=== PATIENT | female | born 1945 | race Asian ===

== ENCOUNTER 2023-08-01 09:50 | Emergency (ER) | payer MEDICARE, OTHER ==
[~2023-08-01] VITALS: Ht 154.9 cm; Wt 61.0 kg
[~2023-08-01 09:50] MED LIST: ATOR20TA PO; CALC-1038 PO; CIPR250T6 PO; SENN-106 PO
[2023-08-01 10:37] VITALS: TEMP 98
[2023-08-01 10:45] LABS: BASOPHILS % (AUTO) 0.4 % (0.0-2.0); EOSINOPHILS % (AUTO) 1.2 % (1.0-6.0); HEMOGLOBIN 14.8 g/dL (12.0-16.0); LYMPHOCYTES # (AUTO) 1.1 K/uL (1.0-4.8); LYMPHOCYTES % (AUTO) 18.3 % (22.0-44.0); MEAN CORPUSCULAR HGB CONC 34.4 G/dL (31.0-37.0); MEAN CORPUSCULAR VOLUME 87 fL (80-100); MONOCYTES # (AUTO) 0.3 K/uL (0.1-1.0); MONOCYTES % (AUTO) 4.5 % (2.0-9.0); NEUTROPHILS # (AUTO) 4.5 K/uL (1.8-7.7); NEUTROPHILS % (AUTO) 75.6 % (40.0-70.0); PLATELET COUNT (AUTO) 164 K/uL (150-450); RED BLOOD CELL COUNT(AUTO) 4.93 MIL/uL (4.00-5.20); RED CELL DISTRIBUTION WIDTH 13.5 % (11.5-14.5)
[2023-08-01] MEDS: MECLIZINE HCL 25 MG TABLET PO ONE (10:55)
[2023-08-01 10:56] LABS: ANION GAP 11 mmol/L (8-16); CALCIUM, TOTAL 8.7 mg/dL (8.8-10.5); CARBON DIOXIDE 31 mmol/L (22-29); CHLORIDE 102 mmol/L (98-107); CREATININE 0.68 mg/dL (0.60-1.30); GLOMERULAR FILTR. RATE CALC > 60 mL/min (>60); GLUCOSE,RANDOM 175 mg/dL (70-110); POTASSIUM 3.4 mmol/L (3.5-5.1); SODIUM SERUM 144 mmol/L (136-145); UREA NITROGEN, BLOOD 9 mg/dL (7-18)
[2023-08-01 11:01] LABS: B-TYPE NATRIURETIC PEPTIDE 12 pg/mL (0-100); PROTHROMBIN TIME 10.9 SEC (9.4-11.6)
[2023-08-01 11:05] LABS: LACTIC ACID 1.5 mmol/L (0.4-2.0)
[2023-08-01 11:06] LABS: TROPONIN I-HIGH SENSITIVITY 4 ng/L (<51)
[2023-08-01 11:12] LABS: APPEARANCE,URINE HAZY (CLEAR); BILIRUBIN,URINE NEGATIVE (NEGATIVE); COLOR,URINE LIGHT YELLOW (YELLOW); GLUCOSE, URINE (UA) NEGATIVE (NEGATIVE); KETONES,URINE NEGATIVE (NEGATIVE); LEUKOCYTE ESTERASE ,URINE LARGE (NEGATIVE); NITRATE,URINE NEGATIVE (NEGATIVE); OCCULT BLOOD,URINE NEGATIVE (NEGATIVE); PROTEIN,URINE 30-70 mg/dL (NEGATIVE); UROBILINOGEN,URINE <=1.0 mg/dL (<=1.0)
[2023-08-01 11:22] LABS: ALANINE AMINOTRANSFERASE 25 U/L (12-78); ALBUMIN 3.9 g/dL (3.4-5.0); ALKALINE PHOSPHATASE 100 U/L (46-116); ASPARTATE AMINOTRANSFERASE 22 U/L (15-37); BILIRUBIN,TOTAL 0.7 mg/dL (0.1-1.0); CREATINE KINASE, TOTAL ONLY 78 U/L (26-192)
[2023-08-01] MEDS ORDERED: RIVA2.5T3 PO (11:29)
[2023-08-01] MEDS ORDERED: GABA-1216 PO (11:29)
[2023-08-01] MEDS ORDERED: AMLO-257 PO (11:29)
[2023-08-01 11:38] LABS: RBC,URINE 0-2 /HPF (0-2)
[2023-08-01 11:39] LABS: BACTERIA,URINE Many /HPF (None Seen); SQUAMOUS EPITHELIAL CELL,UR Many /LPF (None Seen)
[2023-08-01] MEDS ORDERED: MECL-302 PO (12:39)
[2023-08-01 12:47] VITALS: BP 136/74; PULSE 70; RESP 16
== END 2023-08-01 13:04 | disposition home or self-care (01) ==
LOC: EMS 09:50
DX: R42 Dizziness and giddiness (principal); E78.00 Pure hypercholesterolemia, unspecified; I10 Essential (primary) hypertension; Z86.73 Personal history of transient ischemic attack (TIA), and cerebral infarction without residual deficits
CPT/HCPCS: 70450; 71045; 80053; 81001; 82550; 83605; 83880; 84484; 85025; 85610; 85730; 87086; 87186; 93005; 99285; 36415-L1; 36415-TC

== ENCOUNTER 2023-08-26 15:22 | Emergency (ER) | payer MEDICARE, OTHER ==
[~2023-08-26] VITALS: Ht 154.9 cm; Wt 56.8 kg
[~2023-08-26 15:22] MED LIST changes: +AMLO-257 PO; -CIPR250T6 PO; +GABA-1216 PO; +MECL-302 PO; +RIVA2.5T3 PO
[2023-08-26] MEDS ORDERED: IBUP-1552 PO (21:18)
[2023-08-26] MEDS ORDERED: ACET-2247 PO (21:18)
[2023-08-26] MEDS: IBUPROFEN 200 MG TABLET PO ONE (21:25)
[2023-08-26] MEDS: ACETAMINOPHEN 325 MG TABLET PO ONE (21:26)
[2023-08-26 21:30] VITALS: BP 142/69; PULSE 74; RESP 18; TEMP 97.3
== END 2023-08-26 21:50 | disposition home or self-care (01) ==
LOC: EMS 15:26
DX: S33.5XXA Sprain of ligaments of lumbar spine, initial encounter (principal); S20.211A Contusion of right front wall of thorax, initial encounter; E78.00 Pure hypercholesterolemia, unspecified; I10 Essential (primary) hypertension; Z86.73 Personal history of transient ischemic attack (TIA), and cerebral infarction without residual deficits; W19.XXXA Unspecified fall, initial encounter; Y93.89 Activity, other specified; Y92.89 Other specified places as the place of occurrence of the external cause; Y99.8 Other external cause status
CPT/HCPCS: 71101; 72100; 99284; Z7502; Z7610